=== PATIENT | male | born 1975 | race Hispanic/Latino ===

== ENCOUNTER 2019-04-16 10:34 | Emergency (ER) | payer BC, SELFPAY ==
[2019-04-16] MEDS ORDERED: Ondansetron PF 4 MG/2 ML Vial ONE (11:46)
[2019-04-16] MEDS ORDERED: Dexamethasone 10 MG/ML VIAL ONE (12:07)
[2019-04-16] MEDS ORDERED: Metoclopramide HCl 10 MG/2 ML VIAL ONE (12:07)
[2019-04-16] MEDS ORDERED: Ketorolac Tromethamine 30 MG/ML VIAL ONE (12:08)
== END 2019-04-16 13:15 | disposition home or self-care (01) ==
LOC: ERS 10:34
DX: G43.909 Migraine, unspecified, not intractable, without status migrainosus (principal); E11.9 Type 2 diabetes mellitus without complications; Z79.899 Other long term (current) drug therapy
CPT/HCPCS: 96361; 96374; 96375; J1100; J1885; J2405; J2765